=== PATIENT | male | born 1955 | race Caucasian/White ===

== ENCOUNTER 2020-04-18 07:20 | Emergency (ER) | payer BC, SELFPAY ==
[2020-04-18 07:27] VITALS: BP 158/82; PULSE 73; RESP 18; TEMP 36.6; O2SAT 97
--- NOTE | 2020-04-18 07:32 | ED.GENADUL_ITS ---
Discharge Plan Disposition Patient Disposition: HOME Condition: Improving Discharge Details Clinical Impression: Left low back pain Primary Care Provider: Unknown,Unknown ED Provider: Karlie Santacruz Home Meds and New Rx's Prescriptions: New tramadol 50 mg tablet 50 mg PO TID PRN (Reason: pain) Qty: 10 RF: 0 Continued famotidine 20 mg Tablet 20 mg PO DAILY RF: 0 aspirin 81 mg Tablet 81 mg PO PRN PRNRF: 0 loratadine 10 mg Tablet 10 mg PO DAILY RF: 0 Discharge Instructions Instructions: Flank Pain (ED), Back Pain (ED) Additional Instructions: Alternate ice and heat to the affected area(s) several times daily for 20 minutes at a time. Alternate tylenol and motrin as needed and directed for pain. Take the tramadol for pain not relieved with Tylenol or Motrin. Take Zofran as needed and directed for nausea and vomiting. If your symptoms do not improve over the next few days, follow-up with urology. Return immediately to the emergency department if you develop any worsening or new concerning symptoms. Referrals: Enrico Gibson MD [ [facility] STAFF PHYSICIAN] - Discharge Data Discharge Date/Time-TO BE ENTERED AT DEPARTURE: 04/18/20 10:12 Discharge Physician: Karlie Santacruz Medical Decision Making <Dileep Be MD - Last Filed: 04/18/20 07:35> 65 yo male who has a hx of gerd and kidney stones (last being about 15 yeras ago per patient) comes in with cc of left flank pain for a week but acutely worsened last night with nausea, no vomit or fevers. He localizes the pain to the left lower back and radiates to the lower left abdomen. No testicle pain or swelling and denies hematuria or dysuria. Has no cva tenderness on exam, no significant abdominal tenderness. His symptoms seem most consistent with a kidney stone, will obtain labs and CT renal colic pt signed out to oncoming provider pending labs, imaging results and disposition Differential Diagnosis Differential Diagnosis: kidney stone, pancreatitis, diverticulitis <Karlie Santacruz DO - Last Filed: 04/19/20 17:30> 0800 --please see Dr. Be's note for initial presentation, exam and plan. Case endorsed to follow-up on labs and imaging and final disposition. Labs reviewed and unremarkable. Urinalysis negative for infection or blood. CT renal colic negative. 0900 -- Patient assessed at bedside and he admits to some relief of pain. But no cauda equina symptoms. No focal deficits. He states he had a history of a uric acid stone 14 years ago. Case discussed with urology who noted that a uric acid stone would likely be seen with crystals in the urine or specific findings on the CT scan. Discussed with patient that other possibilities of diagnosis can include muscle strain, sciatica, etc. Patient had difficulty sleeping last night due to pain. We will send with tramadol. Patient given urology follow-up information if symptoms do not improve or worsen. Usual and customary return precautions given prior to discharge. Medical Records Medical records reviewed: Yes I reviewed the patient's medical records. Imaging Data Radiologic Study: Radiologist's impression: CT RENAL COLIC WO CLINICAL HISTORY: left flank pain. TECHNIQUE: Imaging Protocol: Axial computed tomography images with coronal and sagittal reformatted images were created and reviewed. COMPARISON: No exams were available for comparison FINDINGS: ABDOMEN: Lung Bases: Normal where visualized. Liver: Normal density. There is a 2.4 cm round hypodense lesion in the right lobe of the liver. It is isodense to the gallbladder and likely reflects a cyst. Sonographic correlation should be considered. Gallbladder and biliary tract: No radiodense calculus or biliary ductal dilation. Pancreas: Normal density, no abnormal calcifications or inflammatory process. Spleen: Normal. Kidneys: Normal size, contour and axis.No radiodense stones or obstructive uropathy. No masses seen. Adrenal glands: No mass is seen. Lymph nodes: Within normal limits. Abdominal Aorta: Abdominal portion non-dilated. Atherosclerosis. PELVIS: Bladder:Symmetric distention, no gross wall thickening. Bowel: No obstruction or bowel wall thickening. Appendix is unremarkable. Colonic diverticulosis but no evidence of acute diverticulitis. Peritoneal cavity: No ascites, collection or mesenteric inflammatory response. No free air. Reproductive organs: Enlarged prostate gland. Bones: Degenerative changes. Soft Tissues: Small fat containing umbilical hernia. IMPRESSION: No evidence of nephrolithiasis or hydronephrosis. Findings were discussed with the emergency department on the date of the examination. Lab Data Lab results reviewed: Yes I reviewed the patient's lab results. Labs: Laboratory Tests Range/Units 04/18/20 04/18/20 04/18/20 07:35 07:43 07:43 WBC (4.4-10.8) 10^3/uL 7.80 RBC (4.36-5.78) 10^6/uL 5.43 Hgb (13.5-17.5) g/dL 16.1 Hct (40.0-50.0) % 47.3 MCV (80-95) fL 87.1 MCH (27.0-33.0) pg 29.7 MCHC (32.0-36.0) % 34.0 RDW (11.8-14.1) % 12.0 Plt Count (130-400) 10^3/uL 202 MPV (8.0-11.0) fL 9.8 Immature Gran % 0.4 Neutrophils % 68.1 Lymphocytes % 21.2 Monocytes % 7.9 Eosinophils % 1.8 Basophils % 0.6 Nucleated RBC % % 0 Absolute Neutrophils (1.2-6.7) 10^3/uL 5.31 Absolute Lymphocytes (1.2-3.4) 10^3/uL 1.65 Absolute Monocytes (0.1-0.8) 10^3/uL 0.62 Absolute Eosinophils (0.0-0.7) 10^3/uL 0.14 Absolute Basophils (0.0-0.2) 10^3/uL 0.05 Sodium (136-145) mmol/L 138 Potassium (3.5-5.1) mmol/L 3.9 Chloride (98-107) mmol/L 102 Carbon Dioxide (21.0-32.0) mmol/L 29.8 Anion Gap (3-11) mmol/L 6.2 BUN (7-18) mg/dL 15 Creatinine (0.70-1.30) mg/dL 1.15 Estimated GFR/1.73 m2 (mL/min/1.73m2) >= 60.00 Glucose (74-106) mg/dL 99 Calcium (8.5-10.1) mg/dL 8.6 Total Bilirubin (0.2-1.0) mg/dL 0.5 Conjugated Bilirubin (0.00-0.20) mg/dL 0.09 AST (15-37) U/L 14 L ALT (16-63) U/L 30 Alkaline Phosphatase (46-116) U/L 66 Total Protein (6.4-8.2) g/dL 7.3 Albumin (3.4-5.0) g/dL 3.9 Lipase (73-393) U/L 63 Urine Color (Yellow) Yellow Urine Clarity (Clear) Clear Urine pH (5-8) 7.0 Ur Specific Dumont (1.005-1.025) 1.015 Urine Protein (Negative) mg/dL Negative Urine Ketones (Negative) mg/dL Negative Urine Blood (Negative) Negative Urine Nitrite (Negative) Negative Urine Bilirubin (Negative) Negative Urine Urobilinogen (Up TO 0.2) EU/dL 0.2 Ur Leukocyte Esterase (Negative) Negative Urine Glucose (Negative) mg/dL Negative HPI <Dileep Be MD - Last Filed: 04/18/20 07:35> General Mode of arrival: ambulatory . Date/Time Provider Initiated Documentation: 04/18/20 07:30 . Limitations to Documentation: no limitations . Information obtained by: patient . History of Present Illness 65 year old M presents to the emergency department with the chief complaint of left flank pain, described as severe, with intensity rated at 10. Quality is described as sharp, Patient started experiencing this week(s) (1) and it has been constant. No relieving factors improve symptom(s), No exacerbating factors reported . Patient notes other (nausea). Patient did receive the following treatments prior to arrival, Aspirin Related Data Home Medications Medication Instructions Recorded Confirmed aspirin 81 mg PO PRN PRN 04/18/20 04/18/20 famotidine 20 mg PO DAILY 04/18/20 04/18/20 loratadine 10 mg PO DAILY 04/18/20 04/18/20 tramadol 50 mg PO TID PRN #10 tab 04/18/20 Previous Rx's Medication Instructions Recorded tramadol 50 mg PO TID PRN #10 tab 04/18/20 Allergies Allergy/AdvReac Type Severity Reaction Status Date / Time No Known Allergies Allergy Unverified 04/18/20 07:28 Review of Systems <Dileep Be MD - Last Filed: 04/18/20 07:35> All systems reviewed & are unremarkable except as noted in HPI and below Constitutional Constitutional: Denies chills, Denies fever(s) and Denies weakness Cardiovascular Cardiovascular: Denies chest pain and Denies dyspnea Respiratory Respiratory: Denies cough and Denies dyspnea Gastrointestinal Gastrointestinal: Denies vomiting Genitourinary Genitourinary: Denies dysuria Neurologic Neurologic: Denies weakness PFSH <Dileep Be MD - Last Filed: 04/18/20 07:35> Medical History (Updated 04/18/20 @ 09:59 by Karlie Santacruz DO) Kidney stones Surgical History (Updated 04/18/20 @ 09:30 by Karlie Santacruz DO) History of carpal tunnel release bilateral Social History Smoking/Tobacco Use Status: Never Smoking risk assessment performed?: Yes Alcohol Intake: current Alcohol Intake frequency: a few times a month Drug use: Never Substance use type: does not use Do you feel safe at home: Yes Do you feel safe in your relationship?: Yes Exam <Dileep Be MD - Last Filed: 04/18/20 07:35> Const General: no acute distress Orientation: alert HENMT Head: normal to inspection Ears: external ears normal General nose exam: external nose normal Mouth: moist mucous membranes Eyes General: appearance normal, both eyes and all related structures Neck Neck: normal visual inspection Resp Effort & Inspection: normal respiratory effort and able to speak in complete sentences Cardio Rate: regular rate GI Palpation: soft Skin General skin exam: no rashes or lesions noted Neuro General: patient alert and patient oriented x3 Extrem General: normal to inspection Psych Mental Status: mental status grossly normal Sign Out <Dileep Be MD - Last Filed: 04/18/20 07:35> Sign Out Data: Sign Out Comment: left flank pain for a week acutely worsened last night and has history of kidney stones, pending labs, ct and a dispo Last updated by Dileep Be MD at 04/18/20 07:40
[2020-04-18 07:41] LABS: Bilirubin Negative (Negative); Blood Negative (Negative); Clarity Clear (Clear); Glucose Negative (Negative); Ketones Negative (Negative); Leukocyte Esterase Negative (Negative); Nitrite Negative (Negative); Specific Gravity 1.015 (1.005-1.025); Urobilinogen 0.2 EU/dL (Up TO 0.2)
[2020-04-18] MEDS: Normal Saline 1,000 ML 1000 ML IV (07:42)
[2020-04-18] MEDS: Ondansetron 4 MG/2 ML VIAL IVP (07:43)
[2020-04-18] MEDS: Ketorolac 15 MG/ML VIAL IVP (07:43)
[2020-04-18 07:47] LABS: Abs Immature Grans 0.03 10^3/uL (0.0-0.06); Absolute Basophil Count 0.05 10^3/uL (0.0-0.2); Absolute Eosinophil Count 0.14 10^3/uL (0.0-0.7); Absolute Lymphocyte Count 1.65 10^3/uL (1.2-3.4); Absolute Monocyte Count 0.62 10^3/uL (0.1-0.8); Absolute Neutrophil Count 5.31 10^3/uL (1.2-6.7); Basophils % 0.6; Eosinophils % 1.8; HCT 47.3 % (40.0-50.0); HGB 16.1 g/dL (13.5-17.5); Immature Grans % 0.4; Lymphocytes % 21.2; MCH 29.7 pg (27.0-33.0); MCV 87.1 fL (80-95); MPV 9.8 fL (8.0-11.0); Monocytes % 7.9; Neutrophils % 68.1; Nucleated RBC 0 %; Platelet Count 202 10^3/uL (130-400); RBC 5.43 10^6/uL (4.36-5.78); RDW-SD 38.6 fL
[2020-04-18 08:03] LABS: ALT 30 U/L (16-63); AST 14 U/L (15-37); Albumin 3.9 g/dL (3.4-5.0); Alkaline Phosphatase 66 U/L (46-116); Anion Gap 6.2 mmol/L (3-11); BUN 15 mg/dL (7-18); Bilirubin, Direct 0.09 mg/dL (0.00-0.20); Bilirubin, Total 0.5 mg/dL (0.2-1.0); CO2 29.8 mmol/L (21.0-32.0); CREATININE 1.15 mg/dL (0.70-1.30); Calcium 8.6 mg/dL (8.5-10.1); Chloride 102 mmol/L (98-107); Glucose 99 mg/dL (74-106); Lipase 63 U/L (73-393); Potassium 3.9 mmol/L (3.5-5.1); Sodium 138 mmol/L (136-145); Total Protein 7.3 g/dL (6.4-8.2)
--- NOTE | 2020-04-18 08:22 | DI.CT_ITS ---
EXAM: CT RENAL COLIC WO CLINICAL HISTORY: left flank pain. TECHNIQUE: Imaging Protocol: Axial computed tomography images with coronal and sagittal reformatted images were created and reviewed. COMPARISON: No exams were available for comparison FINDINGS: ABDOMEN: Lung Bases: Normal where visualized. Liver: Normal density. There is a 2.4 cm round hypodense lesion in the right lobe of the liver. It i s isodense to the gallbladder and likely reflects a cyst. Sonographic correlation should be consider ed. Gallbladder and biliary tract: No radiodense calculus or biliary ductal dilation. Pancreas: Normal density, no abnormal calcifications or inflammatory process. Spleen: Normal. Kidneys: Normal size, contour and axis.No radiodense stones or obstructive uropathy. No masses seen. Adrenal glands: No mass is seen. Lymph nodes: Within normal limits. Abdominal Aorta: Abdominal portion non-dilated. Atherosclerosis. PELVIS: Bladder:Symmetric distention, no gross wall thickening. Bowel: No obstruction or bowel wall thickening. Appendix is unremarkable. Colonic diverticulosis but no evidence of acute diverticulitis. Peritoneal cavity: No ascites, collection or mesenteric inflammatory response. No free air. Reproductive organs: Enlarged prostate gland. Bones: Degenerative changes. Soft Tissues: Small fat containing umbilical hernia. IMPRESSION: No evidence of nephrolithiasis or hydronephrosis. Findings were discussed with the emergency department on the date of the examination. RADIATION DOSE DELIVERED: 1,370.95mGy.cm Total DLP DATA REPOSITORY: All CT scans at this facility are submitted to the National Radiology Data Registry (NRDR) Dose Index Registry (DIR) with the [employer] (ACR). RADIATION OPTIMIZATION: All CT scans at this facility use at least one of these dose optimization te chniques: automated exposure control; mA and/or kV adjustment per patient size (includes targeted exa ms where dose is matched to clinical indication); or iterative reconstruction.
[2020-04-18 09:12] VITALS: BP 112/79; PULSE 67; RESP 18; TEMP 36.6; O2SAT 94
[2020-04-18] MEDS: Ondansetron O.D.T. 4 MG TABEF, 3 TABS/BTL PO (10:09)
== END 2020-04-18 10:12 | disposition home or self-care (01) ==
PROVIDERS: Emergency Medicine; Emergency Provider Physician Assistant
DX: M54.5 Low back pain (principal); Z87.442 Personal history of urinary calculi
CPT/HCPCS: 36415; 80053; 83690; 96361; 96374; 96375; 99284; 74176; 81003; 82248; 85025; J1885; J2405

== ENCOUNTER 2021-12-31 06:41 | Emergency (ER) | payer BC, SELFPAY ==
[2021-12-31] VITALS (34 sets, daily range): BP systolic 136–192; BP diastolic 66–89; PULSE 70–106; RESP 17–30; TEMP 36.6; O2SAT 94–98
--- NOTE | 2021-12-31 06:45 | RT.EKG_ITS ---
APPROVED REPORT Exam: Resting ECG Reason for Exam: chest pain Patient Location: E HR:83 bpm ECG Measurements Heart Rate 83 AXIS LA 181 P 63 QRSd 92 QRS 17 QT 374 T 47 QTc 441 Conclusion Unknown rhythm, irregular rate...V-rate 63-103, variation>10% Sinus with PACs Normal Knapp Normal Interval Nonspecific ST-T changes
--- NOTE | 2021-12-31 07:01 | ED.GENADUL_ITS ---
Discharge Plan Disposition Patient Disposition: STILL A PATIENT Condition: Stable Discharge Details Clinical Impression: Chest pain Primary Care Provider: Unknown,Unknown ED Provider: Papi Pickett [place] Meds and New Rx's Prescriptions: No Action famotidine 20 mg Tablet 20 mg PO DAILY loratadine 10 mg Tablet 10 mg PO DAILY ibuprofen 200 mg Tablet 400 mg PO Q6H PRN Medical Decision Making Patient presenting to ED with left-sided pleuritic type chest pain. His EKG is sinus rhythm with PACs and nonspecific ST changes but nothing acute. There is no old for comparison. His pain is not reproducible. He does not have DVT/PE risk factors so will obtain D-dimer. Chest x-ray also ordered. By history does not seem to be cardiac in nature but his father did of a heart attack around age 55. He does not smoke but he does chew tobacco. Will obtain cardiac labs including delta troponin. He is given baby aspirin. He took ibuprofen at home. He appears to be comfortable at this point. ECG Data Attestation: I personally reviewed and interpreted this ECG (s) as follows: Prior ECG tracings: not available for review Interpretation: See EKG HPI General Mode of arrival: ambulatory . Date/Time Provider Initiated Documentation: 12/31/21 07:01 . Limitations to Documentation: no limitations . Information obtained by: patient and RN notes reviewed . HPI Narrative: Patient presents to the ED with chest pain that woke him up this morning around 4 AM. Patient did take ibuprofen. He tried to go to work but pain seemed to get worse. His father of a heart attack at around age 55 so he decided to come to the ED. The pain is described as sharp and pleuritic in nature. It is left precordial chest. It does not radiate anywhere. He does not feel short of breath but cannot take a deep breath. He denies any diaphoresis, lightheadedness, nausea. He denies any leg pain or leg swelling. Other than family history he has no cardiac risk factors, he does not smoke but he does chew. He has no DVT/PE risk factors. He has not been ill. He has not had chest pain with exertion over the last couple of weeks. He appears comfortable on arrival to the ED. Related Data Home Medications Medication Instructions Recorded Confirmed famotidine 20 mg tablet 20 mg PO DAILY 04/18/20 12/31/21 loratadine 10 mg tablet 10 mg PO DAILY 04/18/20 12/31/21 ibuprofen 200 mg tablet 400 mg PO Q6H PRN 12/31/21 12/31/21 Allergies Allergy/AdvReac Type Severity Reaction Status Date / Time No Known Allergies Allergy Unverified 12/31/21 06:51 General Stated Complaint: Chest Pain SUSAN: 2 Review of Systems Narrative: 01/10 Review of Systems completed and is negative except as stated above in HPI (Systems reviewed: Const, Eyes, ENT, Resp, CV, GI, , MSK, Skin, Neuro) PFSH All Active Problems (Updated 12/31/21 @ 07:48 by Papi Pickett MD) Chest pain (Acute) Medical History Kidney stones Surgical History History of carpal tunnel release bilateral Social History Smoking/Tobacco Use Status: Current every day Tobacco Type: smokeless tobacco Smoking risk assessment performed?: Yes Alcohol Intake: current Alcohol Intake frequency: a few times a month Drug use: Never Substance use type: does not use Details: Chews tobacco every day. Do you feel safe at home: Yes Do you feel safe in your relationship?: Yes Exam Narrative Exam Narrative: Const: WDWN male in NAD. HEENT: NC/AT. Normal facial exam. Eyes: Normal conjunctiva and sclera. Neck: Supple. Trachea midline. Lungs: Normal respiratory effort. Lungs are clear. No chest wall tenderness. Cor: RRR without murmur/gallop. Good radial pulses. GI: Soft. NT/ND. No guarding or rebound. Neuro: A+O x 3. Normal speech, mentation, gait. Cranial nerves II - XII grossly intact. No gross motor or sensory deficit. Ext: No C/C/E. No calf tenderness. Skin: Warm and dry without rash. Course Vital Signs Vital signs: Vital Signs Temperature 97.9 F 12/31/21 06:46 Pulse 91 H 12/31/21 06:46 Respiratory Rate 24 12/31/21 06:46 Blood Pressure 192/89 H 12/31/21 06:46 Pulse Oximetry 96 12/31/21 06:46 Temperature 97.9 F 12/31/21 06:46 Temperature Source Skin 12/31/21 06:46 Pulse 91 H 12/31/21 06:46 Respiratory Rate 24 12/31/21 06:53 Respiratory Effort 12/31/21 06:53 Respiratory Depth Normal 12/31/21 06:53 Respiratory Pattern Normal 12/31/21 06:53 Blood Pressure 192/89 H 12/31/21 06:46 Blood Pressure Position Supine 12/31/21 06:46 Pulse Oximetry 96 12/31/21 06:46 Oxygen Delivery Method Room Air 12/31/21 06:46 Oxygen Flow Rate 0 12/31/21 06:46 Pain Level 6 12/31/21 06:53 Comment 12/31/21 06:46 Sign Out Sign Out Data: Sign Out Comment: Pending D-dimer, chest x-ray, delta Trop and reevaluation. Last updated by Papi Pickett MD at 12/31/21 07:59 PAWSS Have you Been Recently Intoxicated or Drunk Within the Last 30 days?: No Have you Ever Experienced Previous Episodes of Alcohol Withdrawal?: No Have you ever Experienced Withdrawal Seizures?: No Have you ever Experienced Delirium Tremens(DT)s?: No Have you ever undergone Alcohol Rehabilitation Treatment (i.e, inpt ot outpatient treatment programs)?: No Have you ever Experienced Blackouts?: No Have you ever Combined Alcohol with other Downers within the last 90 days?: No Have you ever Combined Alcohol with any other Substance of Abuse during the last 90 days?: No Positive Blood Alcohol level on Presentation? [PCS.BAL]: No Evidence of Increased Autonomic Activity (i.e. HR>120, tremor, sweating, agitation, nausea)?: No Result: 0
[2021-12-31] MEDS: Aspirin 81 MG CHEW 324 MG CH (07:21)
[2021-12-31 07:28] LABS: Abs Immature Grans 0.05 10^3/uL (0.0-0.06); Absolute Basophil Count 0.05 10^3/uL (0.0-0.2); Absolute Eosinophil Count 0.28 10^3/uL (0.0-0.7); Absolute Lymphocyte Count 1.52 10^3/uL (1.2-3.4); Absolute Monocyte Count 0.72 10^3/uL (0.1-0.8); Absolute Neutrophil Count 8.66 10^3/uL (1.2-6.7); Basophils % 0.4; Eosinophils % 2.5; HCT 44.3 % (40.0-50.0); HGB 14.8 g/dL (13.5-17.5); Immature Grans % 0.4; Lymphocytes % 13.5; MCH 29.8 pg (27.0-33.0); MCHC 33.4 % (32.0-36.0); MCV 89 fL (80-95); MPV 10.1 fL (8.0-11.0); Monocytes % 6.4; Neutrophils % 76.8; Platelet Count 178 10^3/uL (130-400); RBC 4.96 10^6/uL (4.36-5.78); RDW 12.2 % (11.8-14.1); RDW-SD 40.4 fL; WBC 11.28 10^3/uL (4.4-10.8)
[2021-12-31 07:43] LABS: ALT 26 U/L (16-63); AST 14 U/L (15-37); Albumin 3.7 g/dL (3.4-5.0); Alkaline Phosphatase 53 U/L (46-116); Anion Gap 6.3 mmol/L (3-11); BUN 14 mg/dL (7-18); Bilirubin, Total 0.4 mg/dL (0.2-1.0); CO2 31.7 mmol/L (21.0-32.0); Calcium 8.9 mg/dL (8.5-10.1); Chloride 103 mmol/L (98-107); Estimated GFR 83.01 (mL/min/1.73m2); Glucose 113 mg/dL (74-106); Magnesium 1.7 mg/dL (1.8-2.4); Potassium 3.9 mmol/L (3.5-5.1); Sodium 141 mmol/L (136-145); Total Protein 6.9 g/dL (6.4-8.2); Troponin I < 50 ng/L (<or=60)
--- NOTE | 2021-12-31 08:00 | DI.CT_ITS ---
Exam(s) CT CHEST PE CTA EXAM: CT CHEST PE CTA CLINICAL HISTORY: chest pain, elevated d dimer. TECHNIQUE: Imaging Protocol: CT angiography of the chest was performed using pulmonary embolus mukund col. Multi planar reconstructions were performed. CONTRAST MATERIAL: Intravenous: Omnipaque 350 Contrast volume: 100 cc COMPARISON: CT CT RENAL COLIC WO from 04/18/2020 FINDINGS: CHEST: PULMONARY ARTERIES: There are no obvious intraluminal filling defects to suggest acute pulmonary embo li. LUNGS: There are multiple bilateral small calcified granulomas noted. Suboptimal inspiratory effort. Also the right hemidiaphragm is elevated and there is atelectasis in the right lung base adjacent t o the elevated right hemidiaphragm.. No confluent infiltrates in the left lung. There are no pleura l effusions. MEDIASTINUM: There is a large expansile nodule in the right thyroid lobe which measures 4.4 cm AP x 2 .2 cm wide x 4 cm craniocaudal. This is suspicious for neoplasm and requires further investigation. There is small lymph nodes in both hilar regions and in the subcarinal region. There is also a slig htly prominent lymph node in the anterior left mediastinal fat adjacent to the aortic arch, this saqib uring 1.3 x 0.8 cm. There is no supraclavicular adenopathy. There is no axillary adenopathy. CARDIAC: Heart size is upper normal. There is no pericardial effusion.Caliber of the thoracic aorta is within normal limits. No evidence of dissection. There is no significant shift of the interventri cular septum. PARTIALLY VISUALIZED UPPERMOST ABDOMEN: There is a 2 x 1.9 cm hypodensity in the right hepatic lobe w hich is unchanged from 04/18/2020 and may represent a cyst but should be verified with ultrasound. N o other focal hepatic lesion seen. No splenomegaly. No adrenal masses. OSSEOUS: No significant osseous lesions.No fractures.. IMPRESSION: 1. No evidence of obvious acute pulmonary emboli. No evidence of pulmonary infarction.No pleural eff usions. 2. There is some atelectasis in the right lung base adjacent to elevated right hemidiaphragm. 3. There is a prominent abnormal nodule-mass in the right thyroid lobe measuring 4.4 x 2.2 x 4 cm. T his is a suspicious thyroid nodule. Ultrasound recommended. Other findings as above. Unexpected findings RADIATION DOSE DELIVERED: 516.92mGy.cm Total DLP DATA REPOSITORY: All CT scans at this facility are submitted to the National Radiology Data Registry (NRDR) Dose Index Registry (DIR) with the [employer] (ACR). RADIATION OPTIMIZATION: All CT scans at this facility use at least one of these dose optimization te chniques: automated exposure control; mA and/or kV adjustment per patient size (includes targeted exa ms where dose is matched to clinical indication); or iterative reconstruction.
[2021-12-31 08:08] LABS: D-Dimer 685 ng/mlFEU (<500)
[2021-12-31] MEDS: Omnipaque 350 MG/ML 500 ML BTL-Imaging package IJ (08:26)
[2021-12-31] MEDS: Normal Saline Flush 10 ML SYR IVP (08:31)
--- NOTE | 2021-12-31 09:20 | W.EDPROG ---
Date of service: 12/31/21 Time of Service: 09:21 Medical Decision Making patient's labs show wbc of 11, d dimer just barely over age adjusted threshold so cta ordered, no pe, does have a thyroid nodule which will need f/u and also has atelectasis on the right lung base. He does note a cough since last night and given his pain is in the right lateral chest and pleuritic concern for possible developing pneumonia, hemodynamically stable and appears well so doubt sepsis, will start oral levofloxacin and obtain delta troponin 2nd troponin negative, he is resting and symptom free right now, offered observation admission but he declined and prefers d/c and outpatient f/u. Will place on the follow up list to see a pcp in the area for a recheck of his bp and also discuss stress testing, return precautions given Sign Out Sign Out Data: Sign Out Comment: Pending D-dimer, chest x-ray, delta Trop and reevaluation. Last updated by Papi Pickett MD at 12/31/21 07:59 Discharge Plan Disposition Patient Disposition: HOME Condition: Stable Discharge Details Clinical Impression: Chest pain Primary Care Provider: Unknown,Unknown ED Provider: Dileep Be Home Meds and New Rx's Prescriptions: New levofloxacin 750 mg tablet 750 mg PO DAILY Qty: 5 0RF Continued famotidine 20 mg Tablet 20 mg PO DAILY loratadine 10 mg Tablet 10 mg PO DAILY ibuprofen 200 mg Tablet 400 mg PO Q6H PRN Discharge Instructions Instructions: Chest Pain (ED) Additional Instructions: your blood pressure was elevated during your visit today. I placed you on a follow up list to see a provider for a recheck of this if you feel more ill, have severe worsening pain or difficulty breathing return to the emergency department
[2021-12-31] MEDS: levoFLOXacin 500 MG, levoFLOXacin 250 MG 750 MG PO (09:26)
[2021-12-31 10:32] LABS: Troponin I < 50 ng/L (<or=60)
--- NOTE | 2021-12-31 12:58 | NUR.NOTE ---
Nursing Note: Referral given to Care Management for recheck B/P, ?get stress test, chest pain, within 1 week
--- NOTE | 2022-01-01 09:26 | CMACTNOTE_ITS ---
- If Service Date Differs Date of service: 01/01/22 Time of Service: 09:26 Care Management Activity Note Manuel is seen in the ED for chest pain. At the request of ED provider, LEA coordinates a referral to ERIKA Etienne, of [facility], on- call provider, to assist Manuel in obtaining a follow up appointment in one week and in establishing care with a local PCP. He has BCBS for insurance.
== END 2021-12-31 11:46 | disposition home or self-care (01) ==
PROVIDERS: Emergency Medicine; Emergency Provider Emergency Medicine
DX: R07.81 Pleurodynia (principal); I49.1 Atrial premature depolarization; F17.220 Nicotine dependence, chewing tobacco, uncomplicated
CPT/HCPCS: 71275; 80053; 93005; 99285; 83735; 84443; 84484; 85025; 85379; 93010